=== PATIENT | female | born 1990 | race African-American/Black ===

== ENCOUNTER 2017-04-18 18:37 | Emergency (ER) | payer BC ==
[~2017-04-18] VITALS: Ht 165.1 cm; Wt 84.4 kg
[2017-04-18 19:37] VITALS: BP 111/57
[2017-04-18] MEDS ORDERED: NAPROXEN 500 MG TABLET PO STA (19:48)
[2017-04-18] MEDS ORDERED: HYDROcodone/APAP 5/325MG 1 TAB TABLET PO ONE (20:00)
[2017-04-18] MEDS ORDERED: NAPR500T8 PO (20:01)
[2017-04-18] MEDS ORDERED: ACET-704 PO (20:01)
--- NOTE | 2017-04-18 20:01 | PHYS DOC ---
Past Medical History Past Medical History: No Pertinent History Past Surgical History: No Surgical History Alcohol Use: Occasionally Drug Use: None Adult General Chief Complaint Chief Complaint: MENSTRUAL PAIN/CRAMPS HPI HPI Patient is a 26 year old female with no significant medical history who presents today with menstrual cramps that began this afternoon. Patient states she occasionally has menstrual cramps but she's not had a bad episode like this for a while. She states she is currently on control which is not helping with her pain today. She has tried muscle relaxer with no relief. Patient denies any chance she is . Denies bleeding more than normal. Review of Systems Review of Systems Constitutional: Denies fever or chills [] Eyes: Denies change in visual acuity, redness, or eye pain [] GI: Menstrual cramps : Denies dysuria or hematuria [] Musculoskeletal: Denies back pain or joint pain [] Integument: Denies rash or skin lesions [] Neurologic: Denies headache, focal weakness or sensory changes [] Endocrine: Denies polyuria or polydipsia [] Current Medications Current Medications Current Medications Medications (Trade) Dose Ordered Sig/Liana Start Time Stop Time Status Last Admin Dose Admin Acetaminophen/ Hydrocodone Bitart (Lortab 5/325) 2 tab 1X ONCE 04/18/17 20:00 04/18/17 20:01 DC Naproxen (Naprosyn) 500 mg 1X STAT 04/18/17 19:48 04/18/17 19:52 DC Ondansetron HCl (Zofran Odt) 4 mg 1X ONCE 04/18/17 20:30 04/18/17 20:31 DC Allergies Allergies Allergies Coded Allergies Type Severity Reaction Last Updated Verified No Known Drug Allergies 11/26/16 No Physical Exam Physical Exam Constitutional: Well developed, well nourished, no acute distress, non-toxic appearance. [] HENT: Normocephalic, atraumatic, bilateral external ears normal, oropharynx moist, no oral exudates, nose normal. [] Abdomen: Bowel sounds normal, soft, no tenderness, no masses, no pulsatile masses. [] Skin: Warm, dry, no erythema, no rash. [] Back: No tenderness, no CVA tenderness. [] Extremities: No tenderness, no cyanosis, no clubbing, ROM intact, no edema. [] Neurologic: Alert and oriented X 3, normal motor function, normal sensory function, no focal deficits noted. [] Psychologic: Affect normal, judgement normal, mood normal. [] Current Patient Data Vital Signs Vital Signs Date Time Temp Pulse Resp B/P (MAP) Pulse Ox O2 Delivery O2 Flow Rate FiO2 04/18/17 19:37 98.2 56 20 99 Room Air 98.2 EKG EKG [] Radiology/Procedures Radiology/Procedures [] Course & Med Decision Making Course & Med Decision Making Pertinent Labs and Imaging studies reviewed. (See chart for details) Patient is in the ED with menstrual cramps. She has tried muscle relaxer with no relief. She was given naproxen and hydrocodone in the ED. She was discharged with Tylenol 3 and naproxen and instructed to continue taking her muscle relaxer. Follow-up with her own doctor next week. Provided return precautions and discharged in stable condition. Dragon Disclaimer Dragon Disclaimer This electronic medical record was generated, in whole or in part, using a voice recognition dictation system. Departure Departure Impression: Primary Impression: Dysmenorrhea Disposition: HOME, SELF-CARE Condition: STABLE Referrals: HAMIDA POLANCO (PCP) Follow-up with your own doctor on Friday Patient Instructions: Dysmenorrhea, [id number] Additional Instructions: You were seen for menstrual cramps. Continue taking the muscle relaxer as ordered by your doctor. We put you on medications to also help with the pain. Take them as prescribed. Come back to the ED if symptoms worsen. Scripts Hydrocodone/Apap 5-325 (NORCO 5-325 TABLET) 1 Each Tablet 1 TAB PO ONCE, #1 TAB Prov: JULES ABREU APRN 04/18/17 Naproxen (NAPROXEN) 500 Mg Tablet. 1 TAB PO BID, #60 TAB 2 Refills Prov: JULES ABREU APRN 04/18/17 Acetaminophen With Codeine (TYLENOL WITH CODEINE #3 TABLET) 1 Each Tablet 1 TAB PO PRN Q6HRS Y for PAIN, #30 TAB Prov: JULES ABREU APRN 04/18/17 JULES ABREU APRN April 18, 2017 20:01
[2017-04-18] MEDS ORDERED: ONDANSETRON ODT 4 MG TAB.RAPDIS. PO ONE (20:30)
[2017-04-18] MEDS ORDERED: HYDR-971 PO (21:02)
== END 2017-04-18 21:10 | disposition home or self-care (01) ==
LOC: ER 20:06
DX: N94.6 Dysmenorrhea, unspecified (principal)
CPT/HCPCS: 99283; Q0162